=== PATIENT | female | born 1945 | race Two or more races ===

== ENCOUNTER 2018-09-28 14:22 | Outpatient (CLI) | payer MEDICARE, OTHER ==
--- NOTE | 2018-09-28 15:35 | Diagnostic Imaging Report ---
Indication: Dyspnea Comparison: None 2 views of the chest obtained. Findings: There is a calcified granuloma at the right lung base. Senescent changes present within the lungs. The lungs are slightly hyperexpanded. Heart size is normal. Bones are osteopenic. IMPRESSION: No acute disease
== END 2018-09-28 16:22 | disposition home or self-care (01) ==
LOC: RAD 14:22
DX: R05 Cough (principal); M85.80 Other specified disorders of bone density and structure, unspecified site
CPT/HCPCS: 71046

== ENCOUNTER → 2019-12-15 | Outpatient (CLI) | payer MEDICARE, OTHER ==
--- NOTE | 2019-12-15 15:11 | Diagnostic Imaging Report ---
EXAM: MRI MRI LT Shoulder no Contrast TECHNIQUE: MR images of the shoulder includes sagittal T2, coronal proton density and fat-suppressed T2 sequences as well as axial proton density and T1 sequences. CLINICAL HISTORY: Shoulder pain. COMPARISON: None FINDINGS: There is a Hill-Sachs deformity in the posterior aspect of the humeral head. Bony structures otherwise intact. No acute fracture, bony lesion or erosion. The glenohumeral joint and the acromion clavicular joints are anatomic in alignment. There is downsloping of the acromion and mild acromial spurring contributing to narrowing of the impingement space. There is some increased signal noted in the distal supraspinatus tendon near the insertion. A small amount of subacromial and subdeltoid fluid also noted. Findings suggest an underlying transmural tear. Infraspinatus and subscapularis tendons are intact. Biceps tendon sits appropriately in the bicipital groove. There is a tear of the superior labrum. IMPRESSION: TRANSMURAL TEAR OF THE SUPRASPINATOUS TENDON WITH A SMALL AMOUNT OF SUBACROMIAL AND SUBDELTOID FLUID NOTED. SUPERIOR LABRAL TEAR. HILL SAC DEFORMITY. DOWNSLOPING OF THE ACROMION AND ACROMIAL SPURRING CONTRIBUTING TO NARROWING OF THE IMPINGEMENT SPACE.
== END | disposition home or self-care (01) ==
LOC: MRI 10:18
DX: M25.512 Pain in left shoulder (principal); M75.102 Unspecified rotator cuff tear or rupture of left shoulder, not specified as traumatic; S43.402A Unspecified sprain of left shoulder joint, initial encounter; X58.XXXA Exposure to other specified factors, initial encounter; Y92.9 Unspecified place or not applicable